=== PATIENT | male | born 1990 | race Caucasian/White ===

== ENCOUNTER 2018-11-08 11:43 | Emergency (ER) | payer MEDICAID ==
[~2018-11-08] VITALS: Ht 172.7 cm; Wt 78.8 kg
[~2018-11-08 11:43] MED LIST: CIPR500T4 PO; LACT1CAP57 PO; LOPE2CAP PO; ONDA4TAB8 PO
[2018-11-08 11:52] VITALS: Ht 172.7 cm; Wt 78.8 kg
[2018-11-08] MEDS ORDERED: LIDOCAINE/MYLANTA 40 ML BTL PO ONE (13:00)
[2018-11-08] MEDS ORDERED: DICYCLOMINE 10 MG CAP PO ONE (13:00)
[2018-11-08 13:09] VITALS: BP 132/85; PULSE 88; RESP 20
--- NOTE | 2018-11-08 16:48 | ERD ---
ER Documentation Chief Complaint Chief Complaint abd pain with vomiting x 3 days , also c/o blood in stool HPI Patient is 27-year-old male presented to ED for abdominal pain and vomiting x3 days. Patient states the pain is a 4 out of 10 it is nonradiating its more crampy intermittent sensation. 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 Since then he has had abdominal crampy pain with bloody diarrhea. Patient states he had a total of 10 episodes over the last 3 days. Patient states symptoms have gotten a little bit better but he still does not feel right. Patient is presenting with vitals within normal limits. Patient has not seen a provider for this incident yet and states this is never happened to him before ROS All systems reviewed and are negative except as per history of present illness. Medications Home Meds Active Scripts Loperamide Hcl* (Imodium*) 2 Mg Capsule, 2 MG PO .AFTER EA LOOSE BM PRN for DIARRHEA, #10 TAB Prov:KEENAN ESCALERA PA-C 11/08/18 Ondansetron Hcl* (Zofran*) 4 Mg Tablet, 4 MG PO Q6H for NAUSEA AND/OR VOMITING, #30 TAB Prov:KEENAN ESCALERA PA-C 11/08/18 Lactobacillus Rhamnosus* (Culturelle*) 1 Each Cap.sprink, 1 CAP PO BID for 30 Days, CAP Prov:KEENAN ESCALERA PA-C 11/08/18 Ciprofloxacin Hcl* (Ciprofloxacin Hcl*) 500 Mg Tablet, 500 MG PO BID for 5 Days, TAB Prov:KEENAN ESCALERA PA-C 11/08/18 Allergies Allergies: Coded Allergies: No Known Allergy (Unverified , 11/08/18) PMhx/Soc Medical and Surgical Hx: pt denies Medical Hx, pt denies Surgical Hx Hx Alcohol Use: Yes (6-8 beer/every other day) Hx Substance Use: No Hx Tobacco Use: Yes (2-3cig/weekend) Smoking Status: Light tobacco smoker FmHx Family History: No diabetes, No coronary disease, No other Physical Exam Vitals Vital Signs Date Temp Pulse Resp B/P (MAP) Pulse Ox O2 O2 Flow FiO2 Time Delivery Rate 11/08/18 88 20 132/85 99 Room Air 13:09 (101) 11/08/18 98.8 85 18 145/89 98 11:52 (107) Physical Exam GENERAL: The patient is well-appearing, well-nourished, in no acute distress HEENT: Atraumatic. Conjunctivae are pink. Pupils equal, round, and reactive to light. There is no scleral icterus. Tympanic membranes clear bilaterally. Oropharynx clear. No nystagmus or photophobia. NECK: C-spine is soft and supple. There is no meningismus. There is no cervical lymphadenopathy. CHEST: Clear to auscultation bilaterally. There are no rales, wheezes or rhonchi. HEART: Regular rate and rhythm. No murmurs, clicks, rubs or gallops. ABDOMEN:Soft, nontender and nondistended. Good bowel sounds. No rebound or guarding. No gross peritonitis. No gross organomegaly or masses. No Paredes sign or McBurney point tenderness. BACK: No midline or flank tenderness. Results 24 hrs Current Medications Medications Dose Sig/Leonard Start Time Status Last (Trade) Ordered Route PRN Stop Time Admin Dose Reason Admin Dicyclomine 10 mg ONCE ONCE 11/08/18 DC 11/08/18 HCl PO 13:00 12:51 (Bentyl) 11/08/18 13:01 40 ml ONCE ONCE 11/08/18 DC 11/08/18 Miscellaneous PO 13:00 12:51 Medication 11/08/18 13:01 (Gi Cocktail (2)) Procedures/MDM ED course: The patient was stable throughout the ED course. The patient and/or family informed of laboratory and diagnostic imaging results throughout the ED course. Medications given in ER: Bentyl GI cocktail Patient tolerated medication well with no adverse reactions. Patient reported improvement in pain. Medical decision makin-year-old male presented to ED for abdominal pain diarrhea and vomiting x3 days. Patient states he has had some bloody diarrhea. 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 Patient was given a GI cocktail and Bentyl in the ED upon reevaluation the patient appears to be doing much better. The patient's abdominal examination was unremarkable it was soft nontender patient remained afebrile during his entire visit in the ED. At this time I have low suspicion for diverticulitis, appendicitis, cholecystitis, UTI, pyelonephritis, toxic megacolon, sepsis, acute abdominal emergency. Patient will be treated outpatient for infectious diarrhea with instructions to follow- up with his primary care provider in 1 to 2 days. Patient is agreement treatment plan and had no further questions upon discharge Prescription for home: Imodium Zofran Cipro Probiotics I have discussed with the patient proper use and common side effects to expert with the medication . I advised the patient/family to speak with the pharmacist dispensing the medication to be advised of any potential drug interactions with other medication or supplements they may be taking. Discharge: At this time, patient is stable for discharge and outpatient management. I have instructed the patient to follow-up with his\her primary care physician in 1 to 2 days. I have discussed with the patient the possibility of needing to see a specialist for further work-up and imaging studies if symptoms persist. I have instructed the patient to promptly return to the ER for any new or worsening symptoms including increased pain, fever, nausea, vomiting, weakness or LOC. The patient and\or family expressed understanding of and agreement with this plan. All questions were answered. Home care instructions were provided. Disclaimer: Inadvertent spelling and grammatical errors are likely due to EHR\dictation software use and do not reflect on the overall quality of patient care. Also, please note that the electronic time recorded on the note does not necessarily reflect the actual time of the patient encounter. Departure Diagnosis: Primary Impression: Infectious diarrhea Condition: Stable Patient Instructions: Bacterial Gastroenteritis Referrals: [facility] YOU HAVE RECEIVED A MEDICAL SCREENING EXAM AND THE RESULTS INDICATE THAT YOU DO NOT HAVE A CONDITION THAT REQUIRES URGENT TREATMENT IN THE EMERGENCY DEPARTMENT. FURTHER EVALUATION AND TREATMENT OF YOUR CONDITION CAN WAIT UNTIL YOU ARE SEEN IN YOUR DOCTORS OFFICE WITHIN THE NEXT 1-2 DAYS. IT IS YOUR RESPONSIBILITY TO MAKE AN APPOINTMENT FOR FOLOW-UP CARE. IF YOU HAVE A PRIMARY DOCTOR --you should call your primary doctor and schedule an appointment IF YOU DO NOT HAVE A PRIMARY DOCTOR YOU CAN CALL OUR PHYSICIAN REFERRAL HOTLINE AT IF YOU CAN NOT AFFORD TO SEE A PHYSICIAN YOU CAN CHOSE FROM THE FOLLOWING [facility] [address] [facility] [address] [facility] [address] [facility] [address] [facility] [facility] [address] [facility] [facility] [address] [facility]. [facility] YOU HAVE RECEIVED A MEDICAL SCREENING EXAM AND THE RESULTS INDICATE THAT YOU DO NOT HAVE A CONDITION THAT REQUIRES URGENT TREATMENT IN THE EMERGENCY DEPARTMENT. FURTHER EVALUATION AND TREATMENT OF YOUR CONDITION CAN WAIT UNTIL YOU ARE SEEN IN YOUR DOCTORS OFFICE WITHIN THE NEXT 1-2 DAYS. IT IS YOUR RESPONSIBILITY TO MAKE AN APPOINTMENT FOR FOLOW-UP CARE. IF YOU HAVE A PRIMARY DOCTOR --you should call your primary doctor and schedule and appointment IF YOU DO NOT HAVE A PRIMARY DOCTOR YOU CAN CALL OUR PHYSICIAN REFERRAL HOTLINE AT . IF YOU CAN NOT AFFORD TO SEE A PHYSICIAN YOU CAN CHOSE FROM THE FOLLOWING [facility] INSTITUTIONS: [facility] [address] [place] [address] [facility] [address] [place] [address] [facility] [address] [place] [address] Additional Instructions: Call your primary care doctor TOMORROW for an appointment during the next 1-2 days.See the doctor sooner or return here if your condition worsens before your appointment time. KEENAN ESCALERA PA-C Nov 08, 2018 16:48
== END 2018-11-08 13:11 | disposition home or self-care (01) ==
LOC: FTE 11:43
DX: A09 Infectious gastroenteritis and colitis, unspecified (principal); F17.210 Nicotine dependence, cigarettes, uncomplicated
CPT/HCPCS: Z7502; Z7610; 99283